=== PATIENT | male | born 1990 | race Caucasian/White ===

== ENCOUNTER 2017-02-10 16:36 | Emergency (ER) | payer OTHER ==
[~2017-02-10] VITALS: Ht 175.3 cm; Wt 70.0 kg
[~2017-02-10 16:36] MED LIST: ZOFR4TAB3 PO
[2017-02-10 16:39] VITALS: BP 135/84; PULSE 86; RESP 14; TEMP 98.4; O2SAT 100
--- NOTE | 2017-02-10 17:14 | PD ---
HPI Chief Complaint: Suicide Ideation/Attempt Time Seen by Provider: 17:08 Travel History International Travel<30 days: No Contact w/Intl Traveler<30days: No Traveled to known affect area: No History of Present Illness HPI 26-year-old male presents for evaluation of depression, suicidal thoughts as well as requesting help with detoxification from heroin. He has been feeling depressed with occasional thoughts of suicide for several months, worsening. No specific plans on harming himself. He endorses her when use on a frequent basis, occasional crack use. History of bipolar disorder. No other complaints. PFSH Past Medical History Bipolar Disorder: Yes Anxiety: Yes Depression: Yes Heart Rhythm Problems: Yes Diminished Hearing: No Endocrine: Yes (MAJOR SWEATING) Hepatitis: Yes (HEPATITIS C) Hypertension: Yes Schizophrenia: Yes Past Surgical History Endocrine Surgery: Yes Other Surgery: Yes (CLAMPING OF SWEAT GLANDSUNDER ARM PITS SO) Social History Alcohol Use: No Tobacco Use: Yes (CIGARETTES 1PPD) Substance Use: No Allergies-Medications (Allergen,Severity, Reaction): Coded Allergies: Codeine (Verified Allergy, Severe, 02/10/17) Reported Meds & Prescriptions Reported Meds & Active Scripts Active No Active Prescriptions or Reported Medications Review of Systems Except as stated in HPI: all other systems reviewed are Neg Physical Exam Narrative GENERAL: Well-developed well-nourished male in no acute distress SKIN: Warm and dry. Non-infected track rojas noted in the antecubital fossa of both arms HEAD: Atraumatic. Normocephalic. EYES: Pupils equal and round. No scleral icterus. No injection or drainage. ENT: No nasal bleeding or discharge. Mucous membranes pink and moist. NECK: Trachea midline. No JVD. CARDIOVASCULAR: Regular rate and rhythm. No murmur appreciated. RESPIRATORY: No accessory muscle use. Clear to auscultation. Breath sounds equal bilaterally. GASTROINTESTINAL: Abdomen soft, non-tender, nondistended. MUSCULOSKELETAL: No obvious deformities. No clubbing. No cyanosis. No edema. NEUROLOGICAL: Awake and alert. No obvious cranial nerve deficits. Motor grossly within normal limits. Normal speech. PSYCHIATRIC: Appropriate mood and affect; insight and judgment normal. Data Data Last Documented VS Vital Signs Date Time Temp Pulse Resp B/P Pulse Ox O2 Delivery O2 Flow Rate FiO2 02/10/17 17:15 16 98 Room Air 02/10/17 16:39 98.4 86 135/84 Orders Complete Blood Count With Diff (02/10/17 17:05) Comprehensive Metabolic Panel (02/10/17 17:05) Psych Screen (02/10/17 17:05) Drug Screen, Random Urine (02/10/17 17:05) Alcohol (Ethanol) (02/10/17 17:05) Labs Laboratory Tests Test 02/10/17 17:25 White Blood Count 4.6 TH/MM3 Red Blood Count 4.58 MIL/MM3 Hemoglobin 14.8 GM/DL Hematocrit 42.4 % Mean Corpuscular Volume 92.6 FL Mean Corpuscular Hemoglobin 32.4 PG Mean Corpuscular Hemoglobin 35.0 % Concent Red Cell Distribution Width 13.0 % Platelet Count 232 TH/MM3 Mean Platelet Volume 8.5 FL Neutrophils (%) (Auto) 54.7 % Lymphocytes (%) (Auto) 32.0 % Monocytes (%) (Auto) 10.9 % Eosinophils (%) (Auto) 1.5 % Basophils (%) (Auto) 0.9 % Neutrophils # (Auto) 2.5 TH/MM3 Lymphocytes # (Auto) 1.5 TH/MM3 Monocytes # (Auto) 0.5 TH/MM3 Eosinophils # (Auto) 0.1 TH/MM3 Basophils # (Auto) 0.0 TH/MM3 CBC Comment DIFF FINAL Differential Comment Sodium Level 140 MEQ/L Potassium Level 4.1 MEQ/L Chloride Level 105 MEQ/L Carbon Dioxide Level 26.0 MEQ/L Anion Gap 9 MEQ/L Blood Urea Nitrogen 7 MG/DL Creatinine 0.88 MG/DL Estimat Glomerular Filtration 105 ML/MIN Rate Random Glucose 101 MG/DL Calcium Level 8.7 MG/DL Total Bilirubin 0.6 MG/DL Aspartate Amino Transf 20 U/L (AST/SGOT) Alanine Aminotransferase 29 U/L (ALT/SGPT) Alkaline Phosphatase 90 U/L Total Protein 7.3 GM/DL Albumin 3.9 GM/DL Ethyl Alcohol Level LESS THAN 3 MG/DL MDM Medical Decision Making Medical Screen Exam Complete: Yes Emergency Medical Condition: Yes Medical Record Reviewed: Yes Differential Diagnosis Substance-induced disorder, acute psychosis, major depressive disorder, bipolar disorder Narrative Course 26-year-old male presents for evaluation of depression, suicidal thoughts, also requesting help with heroin addiction. Mental health screening discussed with the patient. Psychiatric screen ordered. The patient is medically cleared for psychiatric disposition. Diagnosis Primary Impression: Medical clearance for psychiatric admission Scripts No Active Prescriptions or Reported Meds Doyle Vernon Feb 10, 2017 17:14
[2017-02-10 17:48] LABS: AUTOMATED NEUTROPHIL # 2.5 TH/MM3 (1.8-7.7); BASOPHIL % 0.9 % (0.0-2.0); EOSINOPHIL # 0.1 TH/MM3 (0-0.4); EOSINOPHIL % 1.5 % (0.0-4.0); HEMATOCRIT 42.4 % (39.0-51.0); HEMO FLAGS DIFF FINAL; LYMPHOCYTE # 1.5 TH/MM3 (1.0-4.8); MEAN CELL VOLUME 92.6 FL (80.0-100.0); MEAN CORPUSCULAR HEMOGLOBIN 32.4 PG (27.0-34.0); MONO % 10.9 % (0.0-8.0); NEUT % 54.7 % (16.0-70.0); PLATELET COUNT 232 TH/MM3 (150-450); RED BLOOD COUNT 4.58 MIL/MM3 (4.50-5.90); WHITE BLOOD COUNT 4.6 TH/MM3 (4.0-11.0)
[2017-02-10 18:02] LABS: ALT (GPT) 29 U/L (12-78); ANION GAP 9 MEQ/L (5-15); AST (GOT) 20 U/L (15-37); BLOOD UREA NITROGEN 7 MG/DL (7-18); CHLORIDE 105 MEQ/L (98-107); GLOMERULAR FILTRATION RATE 105 ML/MIN (>89); POTASSIUM 4.1 MEQ/L (3.5-5.1); SODIUM (NA) 140 MEQ/L (136-145)
[2017-02-10 18:04] LABS: ALKALINE PHOSPHATASE 90 U/L (45-117); TOTAL BILIRUBIN ADULT 0.6 MG/DL (0.2-1.0)
[2017-02-10 18:56] LABS: AMPHETAMINE, URINE NEG (NEG); BARBITURATES, URINE NEG (NEG); COCAINE, URINE POS (NEG)
[2017-02-10 21:17] VITALS: BP 136/83; PULSE 72; RESP 16; O2SAT 99
[2017-02-10 22:53] VITALS: BP 118/69; PULSE 85; RESP 18; O2SAT 98
[2017-02-11 02:16] VITALS: BP 124/69; PULSE 81; RESP 18; TEMP 97.7; O2SAT 99
[2017-02-11 06:07] VITALS: BP 124/77; PULSE 87; RESP 17; O2SAT 98
--- NOTE | 2017-02-11 10:52 | PD ---
History of Present Illness Chief Complaint: Suicide Ideation/Attempt Time Seen by Provider: 10:45 Travel History International Travel<30 Days: No Contact w/Intl Traveler<30days: No Known affected area: No Legal Status Legal Status: Voluntary History of Present Illness: History of Present Illness 26-year-old male with history of substance abuse as well as chart history of schizophrenia who presents for evaluation of depression, suicidal thoughts as well as requesting help with detoxification from heroin. As per ED documentation included in this report " He has been feeling depressed with occasional thoughts of suicide for several months, worsening. No specific plans on harming himself. ". Patient also reported use of crack as well as heroin. EMR is reviewed. He was last evaluated in 2010 and admitted for psychosis , nos in context of substance use. Current toxicology is positive for cocaine. Patient is seen in [facility]. He has presented no suicidality. He e is alert and oriented male that appears stated age. he is calm and cooperative. Speech is clear and logical. Denies any hallucinations, delusions or paranoia. He denies suicidal ideation and at this time i is reporting that his drug use is out of control and that he is ready to seek help. Since being in [facility] he has contacted his family and has secured an appointment at [facility] in [facility] today at 4:00 pm. . His family will transport him there. PFSH Past Medical History Bipolar Disorder: Yes Anxiety: Yes Depression: Yes Heart Rhythm Problems: Yes Diminished Hearing: No Endocrine: Yes (MAJOR SWEATING) Hepatitis: Yes (HEPATITIS C) Hypertension: Yes Schizophrenia: Yes Tetanus Vaccination: Unknown Influenza Vaccination: No Past Surgical History Endocrine Surgery: Yes Other Surgery: Yes (CLAMPING OF SWEAT GLANDSUNDER ARM PITS SO) Psychiatric History Psychiatric History Hx Psychiatric Treatment: BIPOLAR D/O History of Inpatient Treatment: Yes ([facility] [place] [facility]-) Guns or firearms in home: No Social History Single male who lives with his family. Completed 12 th grade. Hx Alcohol Use: No Hx Tobacco Use: Yes (CIGARETTES 1PPD) Hx Substance Use: Yes (HEROIN) Substance Use Type: Marijuana, Nicotine/Cigarettes, Prescription Medications, Heroin, Cocaine, Synth Opiates-Pain Pills, Other Other Substances Used: IV DRUG USE, CARLOS Hx of Substance Use Treatment: No Family Psychiatric History None reported Allergies-Medications (Allergen,Severity, Reaction): Coded Allergies: Codeine (Verified Allergy, Severe, 02/10/17) Reported Meds & Prescriptions Reported Meds & Active Scripts Active No Active Prescriptions or Reported Medications Review of Systems Except as stated in HPI: all other systems reviewed are Neg Psychiatric: DENIES: Anxiety, Confusion, Mood changes, Depression, Hallucinations, Agitation, Suicidal Ideation, Homicidal Ideation, Delusions Exam Alert: Yes [place]: Person (ox4) Mood: Calm Affect: Euthymic Speech: Clear, Logical Eye Contact: Normal Memory Intact: Comment (no impairmetn) Hallucinations: Other (neagtive) Delusions: No Suicidal: Ideation (denies any) Homicidal: Ideation (denies any) Insight/Judgement fair . Not impaired. MDM Medical Decision Making Medical Record Reviewed: Yes Assessment/Plan 26 year old male with hx of substance abuse who comes into the ED requesting an evaluation he feels his use of substances is out of control. He had reported suicidal ideation which he is recanting at this time. He has secured an appointment for this afternoon at [facility] for evaluation and is requesting discharge. At this time he does not meet criteria for involuntary commitment. He will be discharged as per his request. Orders Complete Blood Count With Diff (02/10/17 17:05) Comprehensive Metabolic Panel (02/10/17 17:05) Psych Screen (02/10/17 17:05) Drug Screen, Random Urine (02/10/17 17:05) Alcohol (Ethanol) (02/10/17 17:05) Diet Regular Basic (02/11/17 Breakfast) Diet Regular Basic (02/11/17 Lunch) Results Vital Signs Date Time Temp Pulse Resp B/P Pulse Ox O2 Delivery O2 Flow Rate FiO2 02/11/17 06:07 87 17 124/77 98 Room Air 02/11/17 02:16 97.7 81 18 124/69 99 Room Air 02/10/17 22:53 85 18 118/69 98 Room Air 02/10/17 21:17 72 16 136/83 99 Room Air 02/10/17 17:15 16 98 Room Air 02/10/17 17:13 16 02/10/17 16:39 98.4 86 14 135/84 100 Room Air Laboratory Tests Test 02/10/17 02/10/17 17:25 18:35 White Blood Count 4.6 Red Blood Count 4.58 Hemoglobin 14.8 Hematocrit 42.4 Mean Corpuscular Volume 92.6 Mean Corpuscular Hemoglobin 32.4 Mean Corpuscular Hemoglobin 35.0 Concent Red Cell Distribution Width 13.0 Platelet Count 232 Mean Platelet Volume 8.5 Neutrophils (%) (Auto) 54.7 Lymphocytes (%) (Auto) 32.0 Monocytes (%) (Auto) 10.9 Eosinophils (%) (Auto) 1.5 Basophils (%) (Auto) 0.9 Neutrophils # (Auto) 2.5 Lymphocytes # (Auto) 1.5 Monocytes # (Auto) 0.5 Eosinophils # (Auto) 0.1 Basophils # (Auto) 0.0 CBC Comment DIFF FINAL Differential Comment Sodium Level 140 Potassium Level 4.1 Chloride Level 105 Carbon Dioxide Level 26.0 Anion Gap 9 Blood Urea Nitrogen 7 Creatinine 0.88 Estimat Glomerular Filtration 105 Rate Random Glucose 101 Calcium Level 8.7 Total Bilirubin 0.6 Aspartate Amino Transf 20 (AST/SGOT) Alanine Aminotransferase 29 (ALT/SGPT) Alkaline Phosphatase 90 Total Protein 7.3 Albumin 3.9 Ethyl Alcohol Level LESS THAN 3 Urine Opiates Screen POS Urine Barbiturates Screen NEG Urine Amphetamines Screen NEG Urine Benzodiazepines Screen NEG Urine Cocaine Screen POS Urine Cannabinoids Screen NEG Diagnosis Primary Impression: Medical clearance for psychiatric admission Additional Impression: Substance induced mood disorder Psychiatrically Cleared: Yes Med/ Other Pt Specific Info: No Meds Exist/No RX given Prescriptions No Active Prescriptions or Reported Meds Disposition: 01 DISCHARGE HOME Condition: Stable Problem Qualifiers Cheyenne Arauz Feb 11, 2017 10:52
== END 2017-02-11 11:21 | disposition home or self-care (01) ==
LOC: NEPA 16:36 → NEPJ 02-11 11:21
DX: F31.9 Bipolar disorder, unspecified (principal); F41.8 Other specified anxiety disorders; I10 Essential (primary) hypertension; F20.9 Schizophrenia, unspecified; F17.210 Nicotine dependence, cigarettes, uncomplicated; R45.851 Suicidal ideations; F14.10 Cocaine abuse, uncomplicated; F19.10 Other psychoactive substance abuse, uncomplicated
CPT/HCPCS: 80053; 80307; 85025; 99284